=== PATIENT | male | born 1950 | race African-American/Black ===

== ENCOUNTER 2017-06-13 08:51 | Outpatient (CLI) | payer MEDICARE, MEDICAID | END 2017-06-13 08:52 | disposition home or self-care (01) | LOC: BICULT 08:51 | PROVIDERS: ATTEND Internal Medicine Gastroenterology | DX: B18.2 Chronic viral hepatitis C (principal); R13.10 Dysphagia, unspecified; K21.9 Gastro-esophageal reflux disease without esophagitis | CPT/HCPCS: 76705 ==

== ENCOUNTER 2017-12-14 13:30 | Outpatient (CLI) | payer MEDICARE, MEDICAID ==
--- NOTE | 2017-12-14 15:04 | MRI ---
MRI CERVICAL SPINE: Technique: Multiplanar, multisequence MRI images were obtained of the cervical spine according to pro tocol. Indications: Cervical radiculopathy. FINDINGS: Cervical vertebrae maintain height. Moderate degenerative changes seen throughout the cervical spine with loss of disc space and osteophytes from the cervical vertebrae. There is an anterolisthesis at C 7-T1 measured at approximately 4 mm. C3-4: Posterior disc bulge and spondylosis impinge on a mildly flattened anterior cord. Mild bilatera l foraminal narrowing due to facet and uncinate hypertrophy. C4-5: Disc bulge and spondylosis impinge on and mildly indent the anterior cord. Bilateral foraminal narrowing. C5-6: Disc bulge and spondylosis impinge on and mildly flatten the anterior cord. Left foraminal sten osis due to facet and uncinate hypertrophy. C6-7: Mild disc bulge and spondylosis. This effaces the anterior subarachnoid space but does not impi nge on the cord. No evidence of significant foraminal stenosis. C7-T1: Anterolisthesis is noted as described above with posterior disc bulge and spondylosis. These c hanges abutt the anterior cord. Evidence of mild bilateral foraminal narrowing due to hypertrophic ch rashmi. Cord signal is normally preserved. IMPRESSION: 1. Multilevel degenerative disc changes and spondylosis throughout the cervical spine with foraminal stenosis. See description at each level above. POS: TPC
== END 2017-12-14 13:31 | disposition home or self-care (01) ==
LOC: BICMRI 13:30
PROVIDERS: ATTEND Family Medicine
DX: M50.10 Cervical disc disorder with radiculopathy, unspecified cervical region (principal); M47.22 Other spondylosis with radiculopathy, cervical region; M99.81 Other biomechanical lesions of cervical region
CPT/HCPCS: 72141

== ENCOUNTER 2018-02-24 09:45 | Outpatient (CLI) | payer MEDICARE, MEDICAID ==
--- NOTE | 2018-02-24 11:16 | ULT ---
HEPATIC SONOGRAM WITH DUPLEX EVALUATION: HISTORY: Hepatitis C. FINDINGS: The gallbladder is incompletely distended. No stones are visible. The common duct is 0.4 cm. The li barbara remains very heterogeneous without focal mass or intrahepatic biliary dilatation. No free fluid. The spleen is 8.5 cm. Good color and spectral Doppler flow within the hepatic and splenic arteries. Portal venous flow is toward the liver. Hepatic venous flow is toward the IVC. IMPRESSION: 1. Heterogeneous echotexture of the liver appears stable. No focal abnormalities. 2. No sonographic evidence of portal venous hypertension. POS: TPC
== END 2018-02-24 09:46 | disposition home or self-care (01) ==
LOC: BICULT 09:45
PROVIDERS: ATTEND Physician Assistant Medical
DX: B18.2 Chronic viral hepatitis C (principal); K74.60 Unspecified cirrhosis of liver; R93.2 Abnormal findings on diagnostic imaging of liver and biliary tract
CPT/HCPCS: 76705

== ENCOUNTER 2018-08-14 06:55 | Outpatient (CLI) | payer MEDICARE, MEDICAID ==
--- NOTE | 2018-08-14 07:54 | ULT ---
Hepatic sonogram with duplex evaluation HISTORY: Hepatitis C. Cirrhosis. COMPARISON: 12/25/2017. FINDINGS: Gallbladder not well delineated. No dilatation is apparent. Common duct is 0.6 cm. Liver un remarkable without focal mass or intrahepatic biliary dilatation. No free fluid. Spleen measures up to 10.8 cm. Good color and spectral Doppler flow within the hepatic and splenic arteries. Portal venous flow is t owards the liver. Hepatic venous flow is towards the IVC. IMPRESSION: No acute abnormalities are demonstrated. No sonographic evidence of portal venous hyperte nsion.
== END 2018-08-14 06:56 | disposition home or self-care (01) ==
LOC: BICULT 06:55
PROVIDERS: ATTEND Physician Assistant Medical
DX: Z12.11 Encounter for screening for malignant neoplasm of colon (principal); K74.60 Unspecified cirrhosis of liver; Z86.19 Personal history of other infectious and parasitic diseases
CPT/HCPCS: 76705

== ENCOUNTER 2019-03-16 06:23 | Outpatient (CLI) | payer MEDICARE, MEDICAID ==
[2019-03-16 09:39] LABS: Hemoglobin 14.5 g/dL (14.0-18.0); Mean Corpuscular HGB CONC 32.8 g/dL (32.0-36.0); Mean Corpuscular Hemoglobin 29.4 pg (27.0-31.0); Mean Corpuscular Volume 89.7 fL (78.0-98.0); Mean Platelet Volume 7.2 fL (7.4-10.4); Platelet Count 176 thou/uL (130-400); RBC Distribution Width 13.4 % (11.5-14.5); Red Blood Cell (RBC) Count 4.93 mill/uL (4.70-6.10); White Blood Cell (WBC) Count 4.5 thou/uL (4.8-10.8)
[2019-03-16 09:50] LABS: Bacteria/HPF None Seen HPF (None Seen); Bilirubin Negative (Negative); Blood, Urine 1+ (Negative); Clarity Clear (Clear); Glucose, Urine (Dipstick) Normal (Negative); Leukocyte 25 Leu/uL (Negative); Nitrite Negative (Negative); Protein, Urine (Dipstick) Negative (Neg-Trace); Squamous Epithelial 0-3 HPF (0-3); Urobilinogen Normal mg/dL (Less than 2)
[2019-03-16 10:01] LABS: Anion Gap 12 mmol/L (10-20); BUN (Urea Nitrogen) 14 mg/dL (8.4-25.7); Calc. Creatinine Clearance 0 mL/min (70-130); Calcium 9.4 mg/dL (7.8-10.44); Carbon Dioxide 27 mmol/L (23-31); Chloride 104 mmol/L (98-107); Estimated GFR-MDRD 69; Glucose 93 mg/dL (80-115); Potassium 3.9 mmol/L (3.5-5.1); Sodium 139 mmol/L (136-145)
--- NOTE | 2019-03-20 10:29 | EKG ---
Test Reason : Blood Pressure : / mmHG Vent. Rate : 062 BPM Atrial Rate : 062 BPM P-R Int : 186 ms QRS Dur : 078 ms QT Int : 416 ms P-R-T Axes : 058 026 015 degrees QTc Int : 422 ms Sinus rhythm with marked sinus arrhythmia Possible Left atrial enlargement Septal infarct , age undetermined Abnormal ECG No previous ECGs available Confirmed by ASAEL BEACH (2) on 03/20/2019 10:28:47 AM Referred By: MILES Confirmed By:ASAEL BEACH
== END 2019-03-16 06:24 | disposition home or self-care (01) ==
LOC: LABBT 06:23
PROVIDERS: ATTEND Urology
DX: Z01.818 Encounter for other preprocedural examination (principal); N40.1 Benign prostatic hyperplasia with lower urinary tract symptoms
CPT/HCPCS: 80048; 81001; 85027; 87086; 93005; 93010

== ENCOUNTER → 2019-03-20 | Day surgery (SDC) | payer MEDICARE, MEDICAID ==
[2019-03-16 08:48] VITALS: BMI 28.3
[~2019-03-20] MED LIST: Fentanyl 100 MCG/2 ML VIAL ONE; Ketorolac Tromethamine 30 MG/ML VIAL ONE; Levofloxacin 500 mg/D5W 100 ml Premix Bag ONE; Lidocaine 1% PF 5 ML VIAL ONE; Midazolam HCl 2 mg/2 ml Vial ONE; Oxybutynin 5 MG TAB ONE; PROPOFOL 200 MG/20 ML VIAL ONE; Phenazopyridine HCl 97.5 MG TABLET ONE
--- NOTE | 2019-03-20 15:05 | OP ---
DATE OF PROCEDURE: 03/20/2019 PREOPERATIVE DIAGNOSIS: Enlarged prostate with lower urinary tract symptoms. POSTOPERATIVE DIAGNOSIS: Enlarged prostate with lower urinary tract symptoms. PROCEDURE PERFORMED: UroLift, utilizing 4 implants. ANESTHESIA: TIVA. COMPLICATIONS: None. BLOOD LOSS: 10 mL. SPECIMEN: None. DESCRIPTION OF PROCEDURE: After informed consent, the patient was taken to the operating room, transferred to the table under his own power. Anesthesia was established. Preoperative antibiotics were administered. He was prepped and draped in the lithotomy position. A rectal exam was performed showing a 30 g prostate without nodules or induration. I then switched gloves and performed cystoscopy with a 20-[place] cystoscope. I noted obstructing bladder neck and upon entering the bladder, found moderate trabeculation without mucosal abnormalities or diverticula. The cystoscope bridge was replaced with the UroLift delivery device. The first treatment site was the patient's left side approximately 2 cm distal to the bladder neck. The distal tip of the delivery device was then angled laterally approximately 20 degrees of this position to compress the lateral lobe. The trigger was pulled, thereby deploying a needle containing the implant through the prostate. The needle was then retracted, allowing one end of the implant to be delivered to the capsular surface of the prostate. The implant was then tensioned to assure capsular seating and removal of slack monofilament. The device was then angled back toward midline and slowly advanced proximally about 3 to 4 mm until cystoscopic verification of the monofilament being centered in the delivery bay. The urethral end piece was then affixed to the monofilament thereby tailoring the size of the implant. Excess filament was then severed. The delivery device was then readvanced into the bladder. The delivery device was then replaced with a new device, and the same procedure was repeated on the right side near the bladder neck deploying the second implant. I then switched to the visual obturator and inspected the prostatic urethra noting no distal obstruction, but continued obstruction from the bladder neck. Two additional implants, the 3rd and 4th were delivered also in the proximal prostatic urethra stacking with the previously placed implants. Cystoscopy then revealed excellent channel with no persistent obstruction. Total number of implants used, 4. The patient was awoken from anesthesia, transferred back to his hospital, taken to PACU in stable condition, where he will discharge home upon recovery. IMPLANT LOCATION SUMMARY: 1. Implant #1: Left proximal prostatic urethra. 2. Implant #2: Right proximal prostatic urethra. 3. Implant #3: Left proximal prostatic urethra-anterior. 4. Implant #4. Right proximal prostatic urethra-anterior. CRITERIA: No active UTI. Conservative management has failed and surgical intervention is indicated. IPSS 23/6. Prostate volume 30 g. Job ID: [id number]
== END ==
LOC: SDC 06:44
PROVIDERS: ATTEND Urology
PROC: 0T7D8DZ Dilation of Urethra with Intraluminal Device, Via Natural or Artificial Opening Endoscopic (ICD-10-PCS; principal; 2019-03-20)
DX: N40.1 Benign prostatic hyperplasia with lower urinary tract symptoms (principal); I10 Essential (primary) hypertension; N52.01 Erectile dysfunction due to arterial insufficiency; F17.210 Nicotine dependence, cigarettes, uncomplicated; Z79.82 Long term (current) use of aspirin; Z79.899 Other long term (current) drug therapy; Z86.19 Personal history of other infectious and parasitic diseases
CPT/HCPCS: 51798; C1889; J1885; J1956; J2250; J3010

== ENCOUNTER 2021-01-07 13:56 | Outpatient (CLI) | payer MEDICARE, OTHER | END 2021-01-07 13:57 | disposition home or self-care (01) | LOC: RAD 13:56 | PROVIDERS: ATTEND Family Medicine | DX: M62.838 Other muscle spasm (principal); M47.812 Spondylosis without myelopathy or radiculopathy, cervical region | CPT/HCPCS: 72050 ==

== ENCOUNTER 2024-08-28 08:56 | Outpatient (CLI) | payer OTHER | END 2024-08-28 08:57 | disposition home or self-care (01) | LOC: BICULT 08:56 | PROVIDERS: ATTEND Physician Assistant Medical | DX: K21.9 Gastro-esophageal reflux disease without esophagitis (principal); D64.9 Anemia, unspecified; K74.60 Unspecified cirrhosis of liver; Z86.19 Personal history of other infectious and parasitic diseases | CPT/HCPCS: 76705 ==